=== PATIENT | female | born 1955 | race Caucasian/White ===

== ENCOUNTER 2016-05-08 02:58 | Emergency (ER) | payer OTHER ==
[2016-05-08] MEDS ORDERED: ALBUTEROL NEB 2.5 MG/3 ML INH STA (03:43)
[2016-05-08] MEDS ORDERED: CEPHALEXIN 250 MG CAPSULE PO STA (03:44)
[2016-05-08] MEDS ORDERED: DEXAMETHASONE 10 MG/ML VIAL PO STA (03:44)
[2016-05-08] MEDS ORDERED: BENZONATATE 100 MG CAPSULE PO STA (03:44)
[2016-05-08] MEDS ORDERED: CEPHALEXIN 250 MG CAPSULE PO ONE (03:47)
[2016-05-08] MEDS ORDERED: CHERRY SYRUP 10 ML UDC PO ONE (03:47)
[2016-05-08] MEDS ORDERED: BENZONATATE 100 MG CAPSULE PO ONE (03:47)
[2016-05-08] MEDS ORDERED: DEXAMETHASONE 10 MG/ML VIAL ONE (03:47)
[2016-05-08] MEDS ORDERED: ALBUTEROL NEB 2.5 MG/3 ML INH ONE (03:48)
== END 2016-05-08 04:45 | disposition home or self-care (01) ==
DX: J45.901 Unspecified asthma with (acute) exacerbation (principal); J06.9 Acute upper respiratory infection, unspecified; I10 Essential (primary) hypertension
CPT/HCPCS: 94640; 99283; 99284; A9270; J7613

== ENCOUNTER 2016-06-03 09:48 | Outpatient (CLI) | payer OTHER | END 2016-06-03 09:49 | disposition home or self-care (01) | DX: I10 Essential (primary) hypertension (principal); R73.01 Impaired fasting glucose ==

== ENCOUNTER 2016-07-08 13:41 | Outpatient (CLI) | payer OTHER | END 2016-07-08 13:42 | disposition home or self-care (01) | DX: Z12.31 Encounter for screening mammogram for malignant neoplasm of breast (principal); Z80.3 Family history of malignant neoplasm of breast ==

== ENCOUNTER 2016-07-08 13:43 | Outpatient (CLI) | payer OTHER | END 2016-07-08 13:44 | disposition home or self-care (01) | DX: M81.0 Age-related osteoporosis without current pathological fracture (principal) ==

== ENCOUNTER 2016-08-20 21:41 | Outpatient (CLI) | payer OTHER | END 2016-08-20 21:42 | disposition home or self-care (01) | DX: M79.89 Other specified soft tissue disorders (principal) ==

== ENCOUNTER 2017-09-18 08:00 | Outpatient (CLI) | payer OTHER ==
[2017-09-18 12:14] LABS: BASOPHILS % (AUTO) 0.6 %; EOSINOPHILS # (AUTO) 0.2 10^3/uL (0.0-0.7); EOSINOPHILS % (AUTO) 2.2 %; HGB - HEMOGLOBIN 13.2 g/dL (12.0-16.0); LYMPHOCYTES # (AUTO) 1.4 10^3/uL (1.5-3.5); LYMPHOCYTES % (AUTO) 16.4 %; MEAN CORPUSCULAR HEMOGLOBIN 31.9 pg (27.0-31.0); MEAN PLATELET VOLUME 9.2 fL (7.9-10.8); MONOCYTES # (AUTO) 0.7 10^3/uL (0.0-1.0); MONOCYTES % (AUTO) 8.9 %; NEUTROPHILS # (AUTO) 6.1 10^3/uL (1.5-6.6); NEUTROPHILS % (AUTO) 71.9 %; PLT - PLATELET COUNT 221 10^3/uL (130-450); RED BLOOD COUNT 4.12 10^6/uL (4.20-5.40); RED CELL DISTRIBUTION WIDTH 12.7 % (12.0-15.0); WHITE BLOOD COUNT 8.4 x10^3/uL (4.8-10.8)
[2017-09-18 12:43] LABS: ALBUMIN/GLOBULIN RATIO 1.2 (1.0-2.2); ALKALINE PHOSPHATASE 82 IU/L (42-121); ALT ALANINE AMINOTRANSFERASE 21 IU/L (10-60); AST ASPARTATE AMINOTRANSFERASE 21 IU/L (10-42); BILIRUBIN,TOTAL 0.9 mg/dL (0.2-1.0); BUN - BLOOD UREA NITROGEN 24 mg/dL (6-20); CARBON DIOXIDE - CO2 25 mmol/L (21-32); CHLORIDE 104 mmol/L (101-111); CHOL/HDL RATIO 4.5 (<4.4); CHOLESTEROL 212 mg/dL; CREATININE 0.8 mg/dL (0.4-1.0); GFR - MDRD 72 (>89); GLUCOSE 93 mg/dL (70-100); HDL CHOLESTEROL 47 mg/dL; LDL CHOLESTEROL,CALCULATED 134 mg/dL; LDL/HDL RATIO 2.9 (<4.4); SODIUM 137 mmol/L (135-145); TOTAL PROTEIN 7.4 g/dL (6.7-8.2); VLDL CHOLESTEROL 31 mg/dL
[2017-09-18 12:51] LABS: HB2 TOTAL 15.6 g/dL; HEMOGLOBIN A1C 0.57 g/dL; HEMOGLOBIN A1C % 5.5 % (4.6-6.2)
== END 2017-09-18 08:01 | disposition home or self-care (01) ==
LOC: LAB.WCP 08:00
PROVIDERS: ATTEND Family Medicine
DX: I10 Essential (primary) hypertension (principal); R73.01 Impaired fasting glucose
CPT/HCPCS: 36415; 80050; 80061; 83036; 83721

== ENCOUNTER 2018-03-23 13:18 | Emergency (ER) | payer OTHER ==
[2018-03-23] MEDS ORDERED: LORATADINE 10 MG TABLET PO STA (13:57)
[2018-03-23] MEDS ORDERED: DEXAMETHASONE 10 MG/ML VIAL PO STA (13:57)
--- NOTE | 2018-03-23 14:03 | ED Physician Documentation ---
History of Present Illness - Stated complaint Stated Complaint: RASH ALL OVER - Chief complaint Chief Complaint: Wound - Additonal information Additional information: hx from pt 62 female itchy rash today no fever or pain no new meds lotion deterg etc no insect bites no travel Review of Systems Constitutional: denies: Fever Throat: denies: Sore throat Cardiac: denies: Chest pain / pressure Respiratory: denies: Dyspnea GI: denies: Abdominal Pain Skin: reports: Rash PD PAST MEDICAL HISTORY - Past Medical History Past Medical History: Yes Cardiovascular: Hypertension Respiratory: Asthma Endocrine/Autoimmune: None GI: GERD FINANCIAL AID MANAGER: None : None HEENT: Other Psych: None Musculoskeletal: None, Other Derm: None - Past Surgical History Past Surgical History: Yes General: Cholecystectomy /FINANCIAL AID MANAGER: Hysterectomy - Present Medications Home Medications: Ambulatory Orders Medication Instructions Recorded Confirmed Albuterol Sulfate [Proventil Hfa] 60 puffs IH Q6HR PRN 08/22/13 05/08/16 Omeprazole [PriLOSEC] 20 mg PO DAILY 05/08/16 05/08/16 Clobetasol 0.05% Oint [Temovate 03/23/18 0.05% Oint] Doxycycline Hyclate 100 mg PO 03/23/18 Loratadine [Claritin] 10 mg PO DAILY #3 tablet 03/23/18 Raloxifene HCl 60 mg 03/23/18 predniSONE [Deltasone] 60 mg PO DAILY 3 Days #15 tablet 03/23/18 raNITIdine [Zantac] 150 mg PO BID #6 tablet 03/23/18 - Allergies Allergies/Adverse Reactions: Allergies Allergy/AdvReac Type Severity Reaction Status Date / Time meperidine HCl * Allergy Mild Hives Verified 03/23/18 13:31 [From Demerol] venom-honey bee Allergy Anaphylaxis Verified 03/23/18 13:31 [bee venom (honey bee)] - Social History Does the pt smoke?: No Smoking Status: Never smoker Does the pt drink ETOH?: No Does the pt have substance abuse?: No - Immunizations Immunizations are current?: Yes - POLST Patient has POLST: No PD ED PE NORMAL - Vitals Vital signs reviewed: Yes - Cardiac Cardiac: RRR - Respiratory Respiratory: No respiratory distress - Derm Derm: Other (raised red macular rash to arms and neck and chin c/w urticaria, no vesicles petecchiae purpura cellulitis) Results - Vitals Vitals: Vital Signs - 24 hr 03/23/18 13:28 Temperature 36.8 C Heart Rate 91 Respiratory 18 Rate Blood Pressure 164/72 H O2 Saturation 97 Oxygen O2 Source Room air Departure - Departure Disposition: 01 Home, Self Care Clinical Impression: Urticaria Condition: Good Instructions: ED Urticaria Follow-Up: Alona Garrett DO [Primary Care Provider] - Prescriptions: Loratadine [Claritin] 10 mg PO DAILY #3 tablet predniSONE [Deltasone] 60 mg PO DAILY 3 Days #15 tablet raNITIdine [Zantac] 150 mg PO BID #6 tablet
[2018-03-23] MEDS ORDERED: CHERRY SYRUP 10 ML UDC PO ONE (14:09)
[2018-03-23 15:27] VITALS: BP 141/76
== END 2018-03-23 15:28 | disposition home or self-care (01) ==
LOC: ED 13:18
DX: L50.9 Urticaria, unspecified (principal); I10 Essential (primary) hypertension
CPT/HCPCS: 99283; A9270

== ENCOUNTER 2018-04-06 15:10 | Emergency (ER) | payer OTHER ==
[2018-04-06 16:43] VITALS: BP 166/68
--- NOTE | 2018-04-06 17:20 | ED Physician Documentation ---
PD HPI SKIN - Stated complaint Stated Complaint: RASH - Chief complaint Chief Complaint: Wound - History obtained from History obtained from: Patient - History of Present Illness Timing - onset: How many days ago (2-3) Timing - duration: Days (had same rash 2-3 weeks ago and was seen/treated with steroids and improved, but not completely. Now back again, not quite as bad as initially, but same character.) Timing - details: Gradual onset Location: Neck, RUE, LUE Quality / character: Itchy, Burning, Discolored, Swelling. No: Vesicular, Crusted, Draining Improved by: Oral steroids (recently) Associated symptoms: No: Fever, Myalgias, Joint pain Similar symptoms before: Has not had sx before Recently seen: Not recently seen Review of Systems Constitutional: denies: Fever, Chills Nose: denies: Rhinorrhea / runny nose, Congestion Throat: denies: Oral lesions / sores, Sore throat Respiratory: denies: Dyspnea, Cough, Wheezing Skin: reports: Rash PD PAST MEDICAL HISTORY - Past Medical History Cardiovascular: Hypertension Respiratory: Asthma Endocrine/Autoimmune: None GI: GERD ENVIRONMENTAL ADVISOR: None : None HEENT: Other Psych: None Musculoskeletal: None, Other Derm: None - Past Surgical History Past Surgical History: Yes General: Cholecystectomy /ENVIRONMENTAL ADVISOR: Hysterectomy - Present Medications Home Medications: Ambulatory Orders Medication Instructions Recorded Confirmed Albuterol Sulfate [Proventil Hfa] 60 puffs IH Q6HR PRN 08/22/13 05/08/16 Omeprazole [PriLOSEC] 20 mg PO DAILY 05/08/16 05/08/16 Clobetasol 0.05% Oint [Temovate 03/23/18 0.05% Oint] Doxycycline Hyclate 100 mg PO 03/23/18 Loratadine [Claritin] 10 mg PO DAILY #3 tablet 03/23/18 Raloxifene HCl 60 mg 03/23/18 predniSONE [Deltasone] 60 mg PO DAILY 3 Days #15 tablet 03/23/18 raNITIdine [Zantac] 150 mg PO BID #6 tablet 03/23/18 Betamethasone Valerate 1 applic TP BID #15 cream..g. 04/06/18 Cetirizine [ZyrTEC] 10 mg PO DAILY #15 tablet 04/06/18 Dexamethasone [Decadron] 4 mg PO DAILY #5 tablet 04/06/18 - Allergies Allergies/Adverse Reactions: Allergies Allergy/AdvReac Type Severity Reaction Status Date / Time meperidine HCl * Allergy Mild Hives Verified 04/06/18 15:17 [From Demerol] venom-honey bee Allergy Anaphylaxis Verified 04/06/18 15:17 [bee venom (honey bee)] - Social History Does the pt smoke?: No Smoking Status: Never smoker Does the pt drink ETOH?: No Does the pt have substance abuse?: No - Immunizations Immunizations are current?: Yes - POLST Patient has POLST: No PD ED PE NORMAL - Vitals Vital signs reviewed: Yes - General General: Alert and oriented X 3, No acute distress, Well developed/nourished - HEENT HEENT: Moist mucous membranes, Pharynx benign - Neck Neck: Supple, no meningeal sign, No adenopathy, Other (anterior chin and neck with red, pebbly patch that is itchy. No vesicles. ) - Cardiac Cardiac: RRR, No murmur - Respiratory Respiratory: Clear bilaterally - Derm Derm: Normal color, Warm and dry, Other (both dorsal hands with thickened skin, local swelling, redness and some scaling of skin at edges. No central clearing. No vesicles. ) Results - Vitals Vitals: Oxygen O2 Source Room air PD MEDICAL DECISION MAKING - ED course Complexity details: considered differential (thickened skin with itching symmetrically on hands. Looks allergic and not infectious. ), d/w patient Departure - Departure Disposition: 01 Home, Self Care Clinical Impression: Skin rash, Dermatitis Condition: Stable Record reviewed to determine appropriate education?: Yes Instructions: ED Dermatitis Non Specific Rash Follow-Up: Alona Garrett DO [Primary Care Provider] - Prescriptions: Betamethasone Valerate 1 applic TP BID #15 cream..g. Cetirizine [ZyrTEC] 10 mg PO DAILY #15 tablet Dexamethasone [Decadron] 4 mg PO DAILY #5 tablet Comments: Continue usual medications for now. Take Decadron steroid daily for 5 more days. Cetirizine antihistamine daily for the next 1-2 weeks. When you are near done with the oral steroids, start doing the topical steroids as well and continue that for another week or so after. Recheck if not fully better over the next few days to week. Follow-up with your primary care subsequently for possible allergy testing. Discharge Date/Time: 04/06/18 18:06
[2018-04-06] MEDS ORDERED: CETIRIZINE 10 MG TABLET PO STA (17:57)
[2018-04-06] MEDS ORDERED: DEXAMETHASONE 10 MG/ML VIAL PO STA (17:57)
== END 2018-04-06 18:06 | disposition home or self-care (01) ==
LOC: ED 15:10
DX: R21 Rash and other nonspecific skin eruption (principal); I10 Essential (primary) hypertension; L30.9 Dermatitis, unspecified
CPT/HCPCS: 99283

== ENCOUNTER 2019-04-05 14:15 | Outpatient (CLI) | payer MEDICARE, OTHER ==
--- NOTE | 2019-04-06 15:37 | XRAY Report ---
Reason: RIGHT ANKLE PAIN Procedure Date: 04/05/2019 Accession Number: [id number] / [id number] Procedure: WCP - Ankle 3 View RT CPT Code: Final Report FULL RESULT: EXAM: RIGHT ANKLE RADIOGRAPHY EXAM DATE: 04/05/2019 02:34 PM. CLINICAL HISTORY: Right ankle pain. COMPARISON: None. TECHNIQUE: 3 views. FINDINGS: Bones: . No fractures or bone lesions. Very subtle bowing of the distal diaphysis of the tibia suggests a previous fracture. Joints: . No effusion. No subluxations. The ankle mortise is normally aligned. Soft Tissues: Diffuse soft tissue prominence of the lower leg and ankle, presumed related to patient habitus. No subcutaneous radiopaque foreign bodies. IMPRESSION: No fracture or ankle joint effusion identified. RADIA
== END 2019-04-05 23:59 | disposition home or self-care (01) ==
LOC: DI.WCP 14:15
PROVIDERS: ATTEND Family Medicine
DX: M25.571 Pain in right ankle and joints of right foot (principal)

== ENCOUNTER 2021-08-01 13:58 | Outpatient (CLI) | payer MEDICARE, OTHER ==
[2021-08-01 18:18] LABS: BASOPHILS # (AUTO) 0.1 10^3/uL (0.0-0.1); BASOPHILS % (AUTO) 0.9 %; EOSINOPHILS # (AUTO) 0.2 10^3/uL (0.0-0.7); EOSINOPHILS % (AUTO) 2.5 %; HCT - HEMATOCRIT 41.4 % (37.0-47.0); HGB - HEMOGLOBIN 13.5 g/dL (12.0-16.0); LYMPHOCYTES # (AUTO) 1.3 10^3/uL (1.5-3.5); LYMPHOCYTES % (AUTO) 19.5 %; MEAN CORPUSCULAR HEMOGLOBIN 31.6 pg (27.0-31.0); MEAN CORPUSCULAR HGB CONC 32.6 g/dL (32.0-36.0); MEAN PLATELET VOLUME 10.7 fL (7.9-10.8); MONOCYTES # (AUTO) 0.5 10^3/uL (0.0-1.0); NEUTROPHILS # (AUTO) 4.7 10^3/uL (1.5-6.6); NEUTROPHILS % (AUTO) 69.8 %; PLT - PLATELET COUNT 241 10^3/uL (130-450); RED BLOOD COUNT 4.27 10^6/uL (4.20-5.40); RED CELL DISTRIBUTION WIDTH 12.9 % (12.0-15.0); WHITE BLOOD COUNT 6.7 x10^3/uL (4.8-10.8)
[2021-08-01 18:41] LABS: ALBUMIN 4.5 g/dL (3.2-5.5); ALBUMIN/GLOBULIN RATIO 1.5 (1.0-2.2); ALKALINE PHOSPHATASE 96 IU/L (42-121); ALT ALANINE AMINOTRANSFERASE 22 IU/L (10-60); AST ASPARTATE AMINOTRANSFERASE 21 IU/L (10-42); BILIRUBIN,TOTAL 0.9 mg/dL (0.2-1.0); BUN - BLOOD UREA NITROGEN 28 mg/dL (6-20); CALCIUM 9.2 mg/dL (8.5-10.3); CARBON DIOXIDE - CO2 29 mmol/L (21-32); CHLORIDE 100 mmol/L (101-111); CHOL/HDL RATIO 4.2 (<4.4); CHOLESTEROL 225 mg/dL; CREATININE 0.8 mg/dL (0.4-1.0); GFR - MDRD 71 (>89); GLUCOSE 93 mg/dL (70-100); HDL CHOLESTEROL 54 mg/dL; LDL CHOLESTEROL,CALCULATED 140 mg/dL; LDL/HDL RATIO 2.6 (<4.4); POTASSIUM 4.2 mmol/L (3.5-5.0); SODIUM 139 mmol/L (135-145); TOTAL PROTEIN 7.6 g/dL (6.7-8.2); TRIGLYCERIDES 156 mg/dL; VLDL CHOLESTEROL 31 mg/dL
== END 2021-08-01 13:59 | disposition home or self-care (01) ==
LOC: LAB.N 13:58
PROVIDERS: ATTEND Family Medicine
DX: I10 Essential (primary) hypertension (principal); E78.5 Hyperlipidemia, unspecified; R73.01 Impaired fasting glucose
CPT/HCPCS: 36415; 80053; 80061; 81599; 83036; 83721; 85025

== ENCOUNTER 2021-08-22 10:16 | Outpatient (CLI) | payer MEDICARE, OTHER ==
--- NOTE | 2021-08-22 14:13 | DEXA Report ---
PROCEDURE: Dexa Spine and/or Hip INDICATIONS: OSTEOPENIA TECHNIQUE: Dual energy x-ray absorptiometry (DXA) was performed on a fitkit System. Regions measur ed are the AP Spine, femoral neck, and if needed forearm. COMPARISON: None. FINDINGS: Lumbar Spine: Bone Mineral Density 1.097 g/cm/cm,T score -0.7, normal Left Hip: Bone Mineral Density 0.747 g/cm/cm,T score -2.1, osteopenia Left Femoral Neck: Bone Mineral Density 0.693 g/cm/cm, T score -2.5, osteopenia Impression: Osteopenia. Patients with diagnosis of osteoporosis or osteopenia should have regular bone mineral density assess ment. For those eligible for Medicare, routine testing is allowed once every 2 years. Testing frequ ency can be increased for patients who have rapidly progressing disease or for those who are receivin g medical therapy to restore bone mass. Reviewed by: Isaiah Hooper MD on 08/22/2021 2:12 PM PDT Approved by: Isaiah Hooper MD on 08/22/2021 2:12 PM PDT Station ID: [id number]
== END 2021-08-22 10:17 | disposition home or self-care (01) ==
LOC: DI 10:16
PROVIDERS: ATTEND Family Medicine
DX: M85.89 Other specified disorders of bone density and structure, multiple sites (principal)

== ENCOUNTER 2023-12-17 09:39 | Day surgery (SDC) | payer MEDICARE, OTHER ==
[2023-12-17] MEDS: CYCLOPENTOLATE 1% OPHTH DROPS 2 ML ONE (10:32)
[2023-12-17] MEDS: KETOROLAC TROMETHAMINE 0.5% OPHTH DROPS 5 ML ONE (10:32)
[2023-12-17] MEDS: PHENYLEPHRINE 2.5% OPHTH 2 ML DROPS ONE (10:32)
[2023-12-17] MEDS: PROPARACAINE 0.5% OPHTH DROPS 15 ML ONE (10:32)
[2023-12-17 10:55] VITALS: O2SAT 96
[2023-12-17] MEDS: LACTATED RINGERS 1,000 ML IV ONE ×2 (11:00→12:18)
--- NOTE | 2023-12-17 11:17 | ANESTHESIA ---
Pre-Anesthesia VS, & Labs - Diagnosis left cataract - Procedure colonoscopy Vital Signs: Temp Pulse Resp BP Pulse Ox O2 Flow Rate 36.2 C L 72 13 156/81 H 96 12/17/23 10:36 12/17/23 10:36 12/17/23 10:36 12/17/23 10:36 12/17/23 10:36 Height: 5 ft Weight (kg): 103.5 kg Body Mass Index: 44.5 BMI Classification: Morbidly Obese - NPO >8 hours - Is Patient ?: No Home Medications and Allergies Home Medications: Ambulatory Orders Ascorbic Acid [Vitamin C] 1,000 mg PO 12/17/23 Calcium Carbonate [Calcium] mg PO 12/17/23 Ergocalciferol (Vitamin D2) [Vitamin D2] mcg PO 12/17/23 Vitamin B Complex 12/17/23 Vitamin E (Dl,Tocopheryl Acet) [Vitamin E] mg PO 12/17/23 Albuterol Sulfate [Proventil Hfa] 60 puffs IH Q6HR PRN 08/22/13 Omeprazole [PriLOSEC] 20 mg PO DAILY 05/08/16 Ascorbic Acid [Vitamin C] 1,000 mg PO 12/17/23 Calcium Carbonate [Calcium] mg PO 12/17/23 Ergocalciferol (Vitamin D2) [Vitamin D2] mcg PO 12/17/23 Vitamin B Complex 12/17/23 Vitamin E (Dl,Tocopheryl Acet) [Vitamin E] mg PO 12/17/23 Allergies/Adverse Reactions: Allergies Allergy/AdvReac Type Severity Reaction Status Date / Time meperidine HCl * Allergy Mild Hives Verified 12/17/23 10:53 [From Demerol] venom-honey bee Allergy Anaphylaxis Verified 12/17/23 10:53 [bee venom (honey bee)] Anes History & Medical History - Anesthetic History Anesthesia Complications: reports: No previous complications - Medical History Cardiovascular: reports: None Pulmonary: reports: Asthma Gastrointestinal: reports: GERD Urinary: reports: None Neuro: reports: None Musculoskeletal: reports: Osteopenia Endocrine/Autoimmune: reports: None Blood Disorders: reports: None Skin: reports: Eczema Smoking Status: Never smoker - Surgical History General: reports: Cholecystectomy, Colonoscopy Gynecologic: reports: Hysterectomy Exam General: Alert, Oriented x3 Dental: Dentures full Upper Mouth Opening: Greater than 4 Fingerbreadths Neck Mobility: Normal Mallampati classification: II Thyromental Distance: greater than 6 cm Respiratory: Lungs clear Cardiovascular: Regular rate Plan Anesthesia Type: MAC Consent for Procedure(s) Verified and Reviewed: Yes Code Status: Attempt Resuscitation ASA classification: 2-Mild systemic disease Is this case an emergency?: No
[2023-12-17] MEDS ORDERED: MIDAZOLAM 2 MG/2 ML VIAL ONE (11:27)
[2023-12-17] MEDS ORDERED: BRIMONIDINE 0.2% OPHTH DROPS 5 ML ONE (11:30)
[2023-12-17] MEDS ORDERED: TRIAMCIN/MOXIFLOX OPHTHALMIC 0.6 ML VIAL IO ONE (11:30)
[2023-12-17] MEDS ORDERED: TIMOLOL 0.5% OPHTH DROPS ONE (11:30)
[2023-12-17] MEDS ORDERED: BSS/LIDOCAINE/EPINEPHRINE 1 ML VIAL ONE (11:30)
[2023-12-17] MEDS ORDERED: EPINEPHrine 1 MG/ML AMP ONE (11:30)
[2023-12-17] MEDS: EPINEPHrine 1 MG/ML AMP IR ONE (11:37)
[2023-12-17] MEDS: BRIMONIDINE 0.2% OPHTH DROPS 5 ML OPTH ONE (11:37)
[2023-12-17] MEDS: BSS/LIDOCAINE/EPINEPHRINE 1 ML SYRINGE IO ONE (11:38)
[2023-12-17] MEDS: TIMOLOL 0.5% OPHTH DROPS OPTH ONE (11:38)
[2023-12-17] MEDS: TRIAMCIN/MOXIFLOX OPHTHALMIC 0.6 ML VIAL IO ONE (11:39)
[2023-12-17] MEDS: PROPARACAINE 0.5% OPHTH DROPS 15 ML EACHEYE ONE (11:39)
[2023-12-17] MEDS: VANCOMYCIN OPHTH (TOPICAL) 10 MG/ML SYRINGE TOP ONE (11:39)
[2023-12-17] MEDS ORDERED: LIDOCAINE-PF 2% 10 ML AMP SUBQ ONE (11:56)
--- NOTE | 2023-12-17 12:05 | OPERATIVE REPORT ---
Operative Report - Other Other Information/Narrative: Date of Surgery: 12/17/23 Preop Dx: Visually significant cataract left eye. This was the first cataract surgery. Postop Dx: Same Procedure: Phacoemulsification with posterior chamber intraocular lens implant left eye Surgeon: Dr. 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 Best corrected visual acuity was 20/150 with glare to count fingers vision in the left eye. Indications for surgery were: - Difficulty seeing words on a computer screen - Difficulty reading - Difficulty seeing words, closed captions, or game scores on TV - Difficulty driving in low light or at night - Difficulty driving at night because of headlights from other vehicles - Difficulty with glare or bright lights in any situation The patient was consented at length concerning the risks and benefits of catar act surgery after which the patient expressed a desire to proceed with surgery. Operative Procedure: The patient was taken into OR#3 and placed under monitored anesthesia care. A surgical time-out was conducted confirming correct patient, correct procedure, and correct surgical site. The patient was given topical anesthesia and then prepped and draped in the usual sterile fashion. The eye was entered at the 6 and 3 oclock positions. Intracameral Shugarcaine was injected into the anterior chamber followed by a dispersive viscoelastic. A continuous-tear curvilinear capsulorhexis was performed. The nucleus was hydrodissected and phacoemulsified. The cortex was evacuated using automated infusion and aspiration. A cohesive viscoelastic was injected into the capsular bag and a 23.5 diopter intraocular lens was inserted into the bag. Infusion and aspiration were used to evacuate the viscoelastic materials from the eye. The wounds were hydrated and the eye inflated to physiologic pressure using balanced salt solution. Approximately 0.25ml of a mixture of triamcinolone and moxifloxacin was injected trans-sclerally into the vitreous in the inferotemporal quadrant using a 30 gauge cannula. An additional 0.25ml of a mixture of triamcinolone and moxifloxacin was injected subconjunctivally in the superior quadrant for infection and inflammation prophylaxis. Wound integrity was checked with Weck-Traci sponges. The patient was taken from the operating room in good condition and given post-op instructions.
[2023-12-17] MEDS ORDERED: KETOROLAC 30 MG/ML VIAL ONE (12:07)
--- NOTE | 2023-12-17 12:07 | ANESTHESIA POST OP EVALUATION ---
Anesthesia Post Eval - Post Anesthesia Eval Vitals: Last Vital Signs Temp 36.2 C L 12/17/23 10:36 Pulse 72 12/17/23 10:36 Resp 13 12/17/23 10:36 BP 156/81 H 12/17/23 10:36 Pulse Ox 96 12/17/23 10:36 O2 Flow Rate CV Function Including HR & BP: Stable Pain Control: Additional Therapies Ordered (Ketorolac in PACU) Nausea & Vomiting: Negative Mental Status: Baseline Respiratory Status: Airway Patent Hydration Status: Satisfactory Anesthesia Complications: None
[2023-12-17 12:30] VITALS: BP 170/70
== END 2023-12-17 09:40 | disposition home or self-care (01) ==
LOC: SDS 09:39
PROVIDERS: ATTEND Ophthalmology
DX: H25.12 Age-related nuclear cataract, left eye (principal); J45.909 Unspecified asthma, uncomplicated; E66.01 Morbid (severe) obesity due to excess calories; Z68.41 Body mass index [BMI] 40.0-44.9, adult
CPT/HCPCS: 66984; A9270; J3490; J7120